=== PATIENT | female | born 1965 | race Two or more races ===

== ENCOUNTER 2021-06-25 11:10 | Emergency (ER) | payer MEDICAID ==
[~2021-06-25] VITALS: Ht 154.9 cm; Wt 65.8 kg
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
--- NOTE | 2021-06-25 11:22 | NUR ---
SEEN AND EXAMINED BY .
--- NOTE | 2021-06-25 11:48 | NUR ---
ER PHLEB AT BEDSIDE FOR BLOOD DRAW.
[2021-06-25 12:04] LABS: HEMATOCRIT 37 % (33-45)
[2021-06-25 12:11] LABS: CALCIUM, SERUM 8.5 mg/dL (8.5-10.1); CREATININE 0.8 mg/dL (0.6-1.3); POTASSIUM 3.7 mmol/L (3.5-5.1)
[2021-06-25 12:13] LABS: BASOPHILS % (AUTO) 0.7 % (0.0-2.0); EOSINOPHILS % (AUTO) 2.7 % (0.0-6.0); HEMOGLOBIN 12.5 g/dL (11.5-14.8); LYMPHOCYTES # (AUTO) 1.9 K/uL (0.8-4.8); LYMPHOCYTES % (AUTO) 30.9 % (20.0-44.0); MEAN CORPUSCULAR HGB CONC 34 g/dl (31.0-36.0); MEAN CORPUSCULAR VOLUME 89 fL (82-100); MONOCYTES # (AUTO) 0.5 K/uL (0.1-1.30); MONOCYTES % (AUTO) 8.4 % (2.0-12.0); NEUTROPHILS # (AUTO) 3.6 K/uL (1.8-8.9); NEUTROPHILS % (AUTO) 57.3 % (43.0-81.0); PLATELET COUNT (AUTO) 242 K/uL (150-450); RED BLOOD CELL COUNT(AUTO) 4.17 MIL/uL (4.0-5.2); WHITE BLOOD COUNT (AUTO) 6.2 K/uL (4.3-11.0)
[2021-06-25] MEDS ORDERED: ACET-2605 PO (13:36)
[2021-06-25 14:07] VITALS: BP 123/74
--- NOTE | 2021-06-25 14:07 | NUR ---
The patient is alert and oriented x4. Patient discharged to home in stable condition. Written and verbal after care instructions given. Patient verbalizes understanding of instruction. Picked up by daughter.
== END 2021-06-25 14:08 | disposition home or self-care (01) ==
LOC: ER 11:15
DX: S80.01XA Contusion of right knee, initial encounter (principal); S00.531A Contusion of lip, initial encounter; M25.461 Effusion, right knee; W01.0XXA Fall on same level from slipping, tripping and stumbling without subsequent striking against object, initial encounter; Y93.89 Activity, other specified; Y92.511 Restaurant or cafe as the place of occurrence of the external cause; Y99.8 Other external cause status
CPT/HCPCS: 36415; 70450-TC; 73564-TC; 80048-TC; 85025-TC; 85730-TC

== ENCOUNTER 2021-10-03 23:54 | Emergency (ER) | payer MEDICAID ==
[~2021-10-03] VITALS: Ht 165.1 cm; Wt 59.9 kg
[~2021-10-03 23:54] MED LIST: ACET-2605 PO
[2021-10-03 23:57] VITALS: BP 144/84
== END 2021-10-04 00:38 | disposition home or self-care (01) ==
LOC: ER 23:56
DX: J02.9 Acute pharyngitis, unspecified (principal); Z20.822 Contact with and (suspected) exposure to COVID-19; Z95.2 Presence of prosthetic heart valve
CPT/HCPCS: 99283; C9803; U0003

== ENCOUNTER 2022-05-19 11:11 | Emergency (ER) | payer MEDICAID ==
[~2022-05-19] VITALS: Ht 154.9 cm; Wt 59.9 kg
[2022-05-19 11:31] VITALS: BP 100/48
[2022-05-19] MEDS ORDERED: LIDOCAINE 1%-EPI 1:100,000 20 ML VIAL ONE (12:13)
[2022-05-19] MEDS ORDERED: ACETAMINOPHEN 325 MG TABLET ONE (12:24)
[2022-05-19] MEDS ORDERED: LIDOCAINE 1% INJ 50 ML MDV IJ ONE (12:30)
[2022-05-19] MEDS ORDERED: ACETAMINOPHEN 325 MG TABLET PO ONE (12:30)
[2022-05-19] MEDS ORDERED: TYL2T PO (12:43)
[2022-05-19] MEDS ORDERED: SULF1TAB48 PO (12:43)
--- NOTE | 2022-05-19 12:45 | NUR ---
Patient discharged to home in stable condition. Written and verbal after care instructions given. Patient verbalizes understanding of instruction.
== END 2022-05-19 12:45 | disposition home or self-care (01) ==
LOC: ER 11:17
DX: L02.411 Cutaneous abscess of right axilla (principal)
CPT/HCPCS: 99283; 10060; A6403 ×2; J3490

== ENCOUNTER 2023-02-13 18:12 | Emergency (ER) | payer MEDICAID ==
[~2023-02-13] VITALS: Ht 160 cm; Wt 65.8 kg
[~2023-02-13 18:12] MED LIST changes: +SULF1TAB48 PO; +TYL2T PO
--- NOTE | 2023-02-13 19:00 | NUR ---
PT IN BED 7 A/OX 3 FARCI ONLY SPEAKING, FAMILY AT BEDSIDE. BREATHING IS EVEN AND UNLABORED 98% ON ROOM AIR. VITALS WNL. C/O: NAUSEA TODAY, FEELING DIZZY FOR 2 DAYS. Hx: A FIB, VALVE REPLACEMENT SURGERY ACTIVE Rx INCLUDINING: WARFARIN, DIGOXIN, PROPANOLOL LOSARTAN, ASPIRIN.
[2023-02-13 19:02] LABS: BASOPHILS % (AUTO) 0.5 % (0.0-2.0); EOSINOPHILS % (AUTO) 2.7 % (0.0-6.0); HEMATOCRIT 38 % (33-45); HEMOGLOBIN 12.8 g/dL (11.5-14.8); LYMPHOCYTES # (AUTO) 1.8 K/uL (0.8-4.8); LYMPHOCYTES % (AUTO) 26.5 % (20.0-44.0); MEAN CORPUSCULAR HGB CONC 34 g/dl (31.0-36.0); MEAN CORPUSCULAR VOLUME 87 fL (82-100); MONOCYTES # (AUTO) 0.5 K/uL (0.1-1.30); MONOCYTES % (AUTO) 7.4 % (2.0-12.0); NEUTROPHILS # (AUTO) 4.3 K/uL (1.8-8.9); NEUTROPHILS % (AUTO) 62.9 % (43.0-81.0); PLATELET COUNT (AUTO) 279 K/uL (150-450); RED BLOOD CELL COUNT(AUTO) 4.32 MIL/uL (4.0-5.2); WHITE BLOOD COUNT (AUTO) 6.9 K/uL (4.3-11.0)
[2023-02-13 19:25] LABS: CARBON DIOXIDE 29 mmol/L (21-32); CHLORIDE 103 mmol/L (98-107); CREATININE 0.7 mg/dL (0.6-1.3); GLUCOSE 115 mg/dL (74-106); POTASSIUM 3.7 mmol/L (3.5-5.1); SODIUM SERUM 140 mmol/L (136-145); UREA NITROGEN, BLOOD 17 mg/dL (7-18)
[2023-02-13 19:39] LABS: ALANINE AMINOTRANSFERASE 26 U/L (12-78); ALBUMIN 3.7 g/dL (3.4-5.0); ALKALINE PHOSPHATASE 94 U/L (46-116); ASPARTATE AMINOTRANSFERASE 25 U/L (15-37); BILIRUBIN,DIRECT 0.1 mg/dL (0.0-0.2); BILIRUBIN,TOTAL 0.5 mg/dL (0.2-1.0); TOTAL PROTEIN, SERUM 7.2 g/dL (6.4-8.2)
--- NOTE | 2023-02-13 20:40 | NUR ---
IV removed. Catheter intact and site benign. Pressure and 4x4 applied to site. No bleeding noted.Patient discharged to home in stable condition. Written and verbal after care instructions given. Patient verbalizes understanding of instruction.
[2023-02-13 22:54] VITALS: BP 129/59
== END 2023-02-13 22:55 | disposition home or self-care (01) ==
LOC: ER 18:14
DX: R42 Dizziness and giddiness (principal); R79.0 Abnormal level of blood mineral; Z95.1 Presence of aortocoronary bypass graft; Z79.899 Other long term (current) drug therapy
CPT/HCPCS: 36415; 70450-TC; 71045-TC; 80048-TC; 80076-TC; 83880; 84484-TC; 85025-TC; 85730-TC

== ENCOUNTER 2023-08-26 22:10 | Emergency (ER) | payer MEDICAID ==
[~2023-08-26] VITALS: Ht 157.5 cm; Wt 59.9 kg
[2023-08-26] MEDS ORDERED: IV NS 0.9% 1,000 ML BAG IV ONE (23:30)
[2023-08-26] MEDS ORDERED: KETOROLAC TROMETHAMINE 15 MG/ML VIAL IV ONE (23:30)
[2023-08-26] MEDS ORDERED: KETOROLAC TROMETHAMINE 15 MG/ML VIAL ONE (23:42)
[2023-08-26 23:45] LABS: BASOPHILS % (AUTO) 0.2 % (0.0-2.0); HEMATOCRIT 38 % (33-45); HEMOGLOBIN 12.5 g/dL (11.5-14.8); LYMPHOCYTES % (AUTO) 8.4 % (20.0-44.0); MEAN CORPUSCULAR HEMOGLOBIN 29 PG (26.0-33.0); MEAN CORPUSCULAR HGB CONC 33 g/dl (31.0-36.0); MEAN CORPUSCULAR VOLUME 87 fL (82-100); MONOCYTES % (AUTO) 10.9 % (2.0-12.0); NEUTROPHILS % (AUTO) 79.5 % (43.0-81.0); PLATELET COUNT (AUTO) 211 K/uL (150-450); RED BLOOD CELL COUNT(AUTO) 4.32 MIL/uL (4.0-5.2); RED CELL DISTRIBUTION WIDTH 12.7 % (11.5-15.0); WHITE BLOOD COUNT (AUTO) 4.8 K/uL (4.3-11.0)
[2023-08-26 23:46] LABS: LYMPHOCYTES # (AUTO) 0.4 K/uL (0.8-4.8); MONOCYTES # (AUTO) 0.5 K/uL (0.1-1.30); NEUTROPHILS # (AUTO) 3.8 K/uL (1.8-8.9)
[2023-08-26 23:54] LABS: APPEARANCE,URINE CLEAR (CLEAR); BILIRUBIN,URINE NEGATIVE (NEGATIVE); BLOOD, URINE 1+ Ery/uL (NEGATIVE); COLOR,URINE YELLOW (YELLOW); KETONES,URINE NEGATIVE (NEGATIVE); LEUKOCYTE ESTERASE ,URINE NEGATIVE (NEGATIVE); NITRITE, URINE NEGATIVE (NEGATIVE); PH,URINE 5.5 (5.0-8.0); PROTEIN,URINE NEGATIVE (NEGATIVE); UGLUCOSE NEGATIVE (NEGATIVE); UROBILINOGEN,URINE 0.2 EU/dL (0.2)
[2023-08-27 00:03] LABS: CALCIUM, SERUM 8.8 mg/dL (8.5-10.1); CARBON DIOXIDE 29 mmol/L (21-32); CHLORIDE 98 mmol/L (98-107); CREATININE 1.2 mg/dL (0.6-1.3); GLUCOSE 104 mg/dL (74-106); POTASSIUM 3.9 mmol/L (3.5-5.1); SODIUM SERUM 135 mmol/L (136-145); UREA NITROGEN, BLOOD 18 mg/dL (7-18)
[2023-08-27 00:04] LABS: ADD URINE CULTURE NO; BACTERIA,URINE Rare /HPF (None Seen); SQUAMOUS EPITHELIAL CELL,UR Rare /HPF (None Seen); WBC,URINE 0-2 /HPF (0-3)
[2023-08-27 00:07] LABS: ALANINE AMINOTRANSFERASE 21 U/L (12-78); ALBUMIN 3.9 g/dL (3.4-5.0); ALKALINE PHOSPHATASE 95 U/L (46-116); ASPARTATE AMINOTRANSFERASE 23 U/L (15-37); BILIRUBIN,DIRECT 0.1 mg/dL (0.0-0.2); BILIRUBIN,TOTAL 0.8 mg/dL (0.2-1.0); LIPASE 52 U/L (16-77); TOTAL PROTEIN, SERUM 7.5 g/dL (6.4-8.2)
[2023-08-27 02:55] VITALS: BP 122/77; TEMP 98.6; O2SAT 98
== END 2023-08-27 02:56 | disposition home or self-care (01) ==
LOC: ER 22:10
DX: R10.30 Lower abdominal pain, unspecified (principal); R94.31 Abnormal electrocardiogram [ECG] [EKG]
CPT/HCPCS: 99285; 74176; 96374; 71045; 96361; 93005; 85025; 80048; 83690; 80076; 81001; 36415; 84484; J7030 ×2; J1885; A4223